=== PATIENT | female | born 1945 | race Caucasian/White ===

== ENCOUNTER 2022-10-06 11:33 | Inpatient (IN) | payer MEDICARE ==
[~2022-10-06] VITALS: Ht 152.4 cm; Wt 84.0 kg
[2022-10-06] VITALS (47 sets, daily range): BP systolic 141–208; BP diastolic 59–129
[~2022-10-06 11:33] MED LIST: ACIPHEX20 MG OR; AVALIDE1 TA1 OR; LIPITOR20 MG OR; ULTRAM ER100 MG OR
--- NOTE | 2022-10-06 11:35 | NUR ---
Patient brought urgently to ED 2 via w/c. is historian, reports that LTN was around 1000. He found his confused about how to operate the dryer and reported feeling dizzy. Stroke alert activated. See EMR and stroke packet documentation.
[2022-10-06 12:08] LABS: HEMATOCRIT 41.6 % (37.0-47.0); HEMOGLOBIN 13.5 g/dl (12.0-16.0); IMMATURE GRANULOCYTES 0.3 % (0.0-5.0); MEAN CELL VOLUME 88.9 fL CALC (80.0-100.0); MEAN CORPUSCULAR HGB 28.8 pG CALC (26.0-32.0); MEAN CORPUSCULAR HGB CONC 32.5 g/dL CAL (32.0-36.0); NEUT# 6.95 thou/uL (2.00-7.15); RED BLOOD COUNT 4.68 mill/uL (4.20-5.60); RED CELL DISTRI WIDTH 13.1 % (11.5-15.5)
[2022-10-06 12:32] LABS: ALBUMIN 4.3 g/dL (3.2-5.0); ALKALINE PHOSPHATASE 128 u/l (38-126); ANION GAP 14 (6-22 (CALC)); BILIRUBIN, TOTAL 0.5 mg/dL (0.0-1.4); BUN 18 mg/dL (8-23); BUN/CREATININE RATIO 16 (12-20 (CALC)); CARBON DIOXIDE 24 mmol/l (22-30); CHLORIDE 105 mmol/l (95-108); CREATININE 1.2 mg/dL (0.5-1.0); GFR FOR AFR.AMER. 53 ML/MIN (>=60 (CALC)); GFR OTHER RACES 43 ML/MIN (>=60 (CALC)); POTASSIUM 4.1 mmol/l (3.5-5.1); SGOT/AST 27 u/l (9-36); SODIUM 139 mmol/l (137-146)
[2022-10-06 12:34] LABS: PROTHROMBIN TIME 9.6 SECONDS (9.0-12.5)
--- NOTE | 2022-10-06 16:29 | NUR ---
EKG TO DR CHAUHAN
--- NOTE | 2022-10-06 17:53 | NUR ---
patient to ICU 6. Bedside report to KLEBER Magana. NIHSS completed at bedside and both RNs agree with assessment.
--- NOTE | 2022-10-06 19:00 | NUR ---
REPORT RECEICED FROM LATOYA SHAHID. PT IN BED EATING. TOLERATING WELL. IV TO RAC FOUND DISLODGED. CATH INTACT. NO BLEEDING NOTED. PT WITH EXPRESSIVE APHASIA. NO WEAKNESS NOTED. WILL CONTINUE PLAN OF CARE. CLOSE MONITORING OF BP. WILL REASSESS AND MEDICATE PER PRN ORDERS.
--- NOTE | 2022-10-06 20:10 | NUR ---
SPOKE WITH DR. MATHEW. PT WITH ONE IV SITE, FLUSHS WELL, BUT MINIMAL BLOOD RETURN. PT WITH STAT LAB ORDERS. HOLD BLOOD DRAWS FOR 24H POST TNK ADMINISTRATION. ELECTRIC CLOCK MECHANIC NOTIFIED.
--- NOTE | 2022-10-06 21:10 | NUR ---
URINE COLLECTED AND SENT TO LAB
[2022-10-06 21:24] LABS: URINE BILIRUBIN - DIPSTICK NEGATIVE (NEGATIVE); URINE BLOOD DIPSTICK TRACE-INTACT (NEGATIVE); URINE COLOR YELLOW; URINE GLUCOSE - DIPSTICK NEGATIVE (NEGATIVE); URINE KETONE NEGATIVE (NEGATIVE); URINE LEUK ESTERASE NEGATIVE (NEGATIVE); URINE PROTEIN - DIPSTICK NEGATIVE (NEG-TRACE); URINE UROBILINOGEN - DIPSTICK 0.2 E.U./dL (0.2)
[2022-10-06 21:25] LABS: URINE NITRITE - DIPSTICK NEGATIVE (Negative)
--- NOTE | 2022-10-06 21:30 | NUR ---
SPOKE TO DR. MARISCAL REGARDING STAT DIAGNOSTICS (MRI AND ECHO). PHYSICIAN REPORTS THAT HE IS AWARE THAT MRI WILL NOT BE DONE OVER NIGHT. MRI TO BE DONE OVER WEEKEND AND ECHO WILL LIKELY NOT BE DONE UNTIL AFTER WEEKEND. HIDE TANNER GENESIS MOHAN.
--- NOTE | 2022-10-06 21:50 | NUR ---
REPORT GIVEN TO KLBEER ISSA. PT RESTING IN BED. NO DISTRESS. VSS.
--- NOTE | 2022-10-06 22:00 | NUR ---
TAKING OVER PT CARE, REPORT RECEIVED FROM KLEBER THOMPSON.
[2022-10-07] VITALS (88 sets, daily range): BP systolic 100–187; BP diastolic 35–141
--- NOTE | 2022-10-07 | NUR ---
SHIFT REASSESSMENT - PT ALERT AND FOLLOWING COMMANDS. PT IS APHASIC, NIH COMPLETED. PT WAS ABLE TO SAY HER NAME ONCE, BUT WAS UNABLE TO SAY IT AGAIN AN HOUR LATER. PTS BLOOD PRESSURE WITHIN NORMAL LIMITES AT THIS TIME.
--- NOTE | 2022-10-07 02:00 | NUR ---
SHIFT REASSESSMENT - PT ALERT AND FOLLOWING COMMANDS. LOOKS TO BE GETTING MORE FRUSTRATED WITH EACH NIH ASSESSMENT. CONTINUED TO REASSURE HER THAT THERE ARE SMALL NOTICABLE IMPROVEMENTS. PT WAS ABLE TO SAY THAT THERE ARE CHILDREN IN THE PHOTO THIS TIME. NIH SCORE HAS NOT CHANGED, PT REMAINS AT 4 DUE TO APHASIA.
--- NOTE | 2022-10-07 04:00 | NUR ---
SHIFT REASSESSMENT - ALERT AND AWAKE, THIS TIME SHE SEEMS TO BE IN A BETTER MOOD ABOUT THE NIH ASSESSMENT. PT WAS ABLE TO SAY THAT SHE SEES CHILDREN, AND A WOMEN IN THE PHOTO. SHE WAS VERY EXCITED ABOUT IT. VITAL SIGNS ARE WITHIN NORMAL LIMITS. PT DENIES PAIN AT THIS TIME. NO SIGNS OF INAPPROPRIATE BLEEDING. CALL LIGHT WITHIN HER REACH. SAFETY PRECAUTIONS IN PLACE.
--- NOTE | 2022-10-07 06:15 | NUR ---
SHIFT REASSESSMENT - NO CHANGE IN PT STATUS AT THIS TIME. VITAL SIGNS ARE WITHIN NORMAL LIMITS. SAFETY PRECAUTIONS ARE IN PLACE.
--- NOTE | 2022-10-07 07:43 | NUR ---
pt awake/alert, able to follow commands, no noted weakness or deficits, has clear speech but aphasic, able to express some words/phrases
--- NOTE | 2022-10-07 09:10 | NUR ---
pt awake/alert, having difficulty with most words and her name, family at bedside
--- NOTE | 2022-10-07 11:20 | NUR ---
pt down to MRI, experiencing some mild anxiety during test, ativan given prior to
--- NOTE | 2022-10-07 11:56 | NUR ---
pt back to bed after MRI, transported by WC, ambulated with minimal 1 assist, cydney transfers well
--- NOTE | 2022-10-07 13:20 | NUR ---
pt with family in room, up to BSC, unsteady, some difficulty finding words but can speak in some full sentences, able to say words on NIHSS list but unable to state name
--- NOTE | 2022-10-07 15:07 | NUR ---
pt continues with family at bedside, she denies FINCH or dizziness
[2022-10-07 15:29] LABS: HEMATOCRIT 42.7 % (37.0-47.0); HEMOGLOBIN 13.6 g/dl (12.0-16.0); MEAN CELL VOLUME 90.5 fL CALC (80.0-100.0); MEAN CORPUSCULAR HGB 28.8 pG CALC (26.0-32.0); MEAN CORPUSCULAR HGB CONC 31.9 g/dL CAL (32.0-36.0); RED BLOOD COUNT 4.72 mill/uL (4.20-5.60); RED CELL DISTRI WIDTH 13.7 % (11.5-15.5)
[2022-10-07 15:53] LABS: CREATININE 1.2 mg/dL (0.5-1.0); POTASSIUM 3.9 mmol/l (3.5-5.1)
[2022-10-07 15:54] LABS: ALBUMIN 4.1 g/dL (3.2-5.0); BILIRUBIN, TOTAL 0.6 mg/dL (0.0-1.4); CHOLESTEROL HDL RATIO 2.8 (<4.4 (CALC)); MAGNESIUM 2.2 mg/dL (1.6-2.3); TOTAL PROTEIN 6.9 g/dL (6.3-8.2)
--- NOTE | 2022-10-07 17:30 | NUR ---
pt again up to commode, more steady this time, PT has been in to eval
--- NOTE | 2022-10-07 20:00 | NUR ---
PT SLEEPING AT THE TIME OF MY ARRIVAL. COMPLETED ASSESSMENT AND NIH. PT DOES RESPOND APPROPRIATELY WHEN ASKED SINGLE WORK ANSWERS. SHE ALSO RESPONDS WHEN SHE DOES NOT ASSUME WE ARE COMPLETING AN NIH ASSESSMENT. PT HAS BEEN OUT OF BED USING THE COMMODE. PT DOES NOT LOOK TO BE IN ANY ANY DISTRESS. PT DENIES PAIN AT THIS TIME. CALL LIGHT AND PERSONAL BELONGINGS WITHIN REACH.
--- NOTE | 2022-10-07 22:00 | NUR ---
SHIFT REASSESSMENT - NO CHANGE IN PT STATUS AT THIS TIME. VITAL SIGNS ARE WITHIN NORMAL LIMITS. CALL LIGHT AND PERSONAL BELONGINGS WITHIN REACH.
[2022-10-08] VITALS (43 sets, daily range): BP systolic 105–163; BP diastolic 34–140
--- NOTE | 2022-10-08 | NUR ---
SHIFT REASSESSMENT - PT COMPLETED NIH AND THERE HAS BEEN NO CHANGE AT THIS TIME.
--- NOTE | 2022-10-08 02:00 | NUR ---
SHIFT REASSESSMENT - NO CHANGE IN PT STATUS. CALL LIGHT WITHIN REACH.
--- NOTE | 2022-10-08 04:00 | NUR ---
SHIFT REASSESSMENT - PT ALERT AND ORIENTED. NIH REMAINS UNCHANGED. CALL LIGHT WITHIN REACH.
--- NOTE | 2022-10-08 06:00 | NUR ---
SHIFT REASSESSMENT - PT RESTING COMFORTABLY. NO CHANGE IN PT STATUS AT THIS TIME.
--- NOTE | 2022-10-08 08:00 | NUR ---
Pt resting in bed comfortably - call light and personal belongings at bedside. No concerns at this time.
--- NOTE | 2022-10-08 09:00 | NUR ---
Med pass completed with no issues. Educated patient on importance of anti coagulations. Pt verbalized understanding. Assited pt to BSC where she urinated 150cc which is charted. Breakfast tray delivered. Glucose checked and WNL. Pt has no current needs at this time. CXR ordered and completed d/t wheezing.
--- NOTE | 2022-10-08 10:26 | NUR ---
Pt spouse at bedside - pt denies any pain or discomfort - VSS - no needs or concerns at this time.
--- NOTE | 2022-10-08 12:28 | NUR ---
Patient resting in bed, spouse still at bedside - tolerated lunch with no issues - Blood sugar was 96 - pt denies any pain or discomfort. Call light and personal belongings in reach.
--- NOTE | 2022-10-08 14:18 | NUR ---
PT CT negative and xray of right hand negative. Ct and XRAY ordered to follow up on pt fall 10/07/22. Pt notified and verbalized understanding.
--- NOTE | 2022-10-08 16:00 | NUR ---
Pt visiting with son and daughter in law - Denies any pain or discomfot - VSS - declined toileting - call light and personal belongings in reach.
--- NOTE | 2022-10-08 18:03 | NUR ---
Pt completed Tele Neuro consult without any issues - was able to eat dinner with no issues - pt stil has trouble answering LOC questions - Gait is unsteady and pt is instructed to call before getting up - bed alarm is on - call light and personal belongings in reach
--- NOTE | 2022-10-08 20:00 | NUR ---
PATIENT LAYING IN BED AT THIS TIME. NEURO CHECKS REMAIN UNCHAGED FROM PREVIOUS CHECK. PATIENT IS ALERT AND ORIENTED X 2 AND CAN ANSWER QUESTIONS BUT IS APHASIC AND DYSARTHRIA IS NOTED. PATIENT NIH IS A 4 AT THIS TIME. PATIENT MOVES ALL EXTREMITIES WELL AND WITHOUT DRIFTS. LUNG WHYTE HAVE NOTED WHEEZINGS IN LOWER WHYTE. BOWEL SOUNDS ARE PRESENT IN ALL FOUR QUADRANTS, SPEECH IS CLEAR. PATIENT DENIES ANY PAIN AND PARTITION SETTER IS SHOWING SINUS RHYTHM AND HR OF 100 AT THIS TIME CURRENT BP IS 140/58. SIDERAILS ARE UP CALL LIGHT IS WITHIN REACH WILL CONTINUE TO MONITOR.
--- NOTE | 2022-10-08 22:10 | NUR ---
PATIENT LAYING IN BED AT THIS TIME WITH EYES CLOSED. PATIENTS RESPIRATIONS ARE EASY AND UNLABORED AT THIS TIME. PROFILE MILL OPERATOR TAPE CONTROL READING SINUS RHYTHM AND HR OF 91 AND SPO2 IS CURRENTLY 94% ON ROOM AIR. SIDERAILS ARE UP X 2 CALL LIGHT WITHIN REACH WILL CONTINUE TO MONITOR.
[2022-10-09] VITALS (15 sets, daily range): BP systolic 114–171; BP diastolic 67–143
--- NOTE | 2022-10-09 | NUR ---
PATIENT RESTING IN BED AT THIS TIME DENEIS ALL NEEDS AT THIS TIME. NEURO CHECK REMAINS UNCHAGED PREVIOUISLY DONE. NIH REMAINS A 4 AT THIS TIME. SIDERAILS ARE UP X 2 CALL LIGHT IS WITHIN REACH. SALES RECRUITER READING SINUS RHYTHM AND HR IS 89 AT THIS TIME. PATIENT IS RESING AND ROOM AIR IS 96% SIDERAILS ARE UP CALL LIGHT WITHIN REACH.
--- NOTE | 2022-10-09 02:12 | NUR ---
PATIENT REMAINS IN BED WITH EYES CLOSED AND RESPIRATIONS EASY AND UNLABORED AT THIS TIME. TOW MOTOR OPERATOR SHOWING SR AND HR IS 91. SPO2 ON ROOMAIR IS CURRENTLY 94% SIDERAILS ARE UP CALL LIGHT WITHIN REACH.
--- NOTE | 2022-10-09 04:00 | NUR ---
PATIENT AWAKE IN BED NEURO CHECKS PREFORMED AT THIS TIME AND REMAIN UNCHANGED FROM PREVIOUS CHECK. NIH REMAINS A 4 AT THIS TIME. PATIENT IS ALERT AND ORIENTED BUT DOES HAVE APHASIA. PATIENT MOVES ALL EXTREMITES WELL AND NO DRIFT NOTED. SPEECH IS CLEAR AT THIS TIME. PATIENT WAS ASSISTED TO BEDSIDE COMMODE AND PATIENT VOIDED 550ML OF MARIAM COLOR URINE. LAITH PAD CHANGED AT THIS TIME AND PATIENT ASSISTED BACK TO BED. SIDERAILS ARE UP X 2 AND CALL LIGHT WITHIN REACH.
--- NOTE | 2022-10-09 06:00 | NUR ---
PATIENT RESTING IN BED AT THIS TIME DENIES ANY NEEDS CURRENTLY DATA CENTER ARCHITECT READING SINUS RHYTHM AT 94 SIDERAILS ARE UP CALL LIGHT WITHIN REACH.
--- NOTE | 2022-10-09 08:00 | NUR ---
Upon arrival pt resting in bed comfortably - VSS - NSR on monitor - Call light and personal belongings in reach
--- NOTE | 2022-10-09 10:00 | NUR ---
Pt tolerated am med pass with no difficulties - Assisted to BSC, gait is improved today - VSS - Pt denies any pain or discomfort - NIH score is a 4 - call light and personal belongins in reach
[2022-10-09] MEDS ORDERED: PLAVIX75 MG PO (10:57)
[2022-10-09] MEDS ORDERED: ADLT ASA LOW81 MG PO (10:58)
[2022-10-09] MEDS ORDERED: LIPITOR40 M1 PO (11:03)
--- NOTE | 2022-10-09 12:30 | NUR ---
Reviewed DC instructions with patient, spouse and son. All three verbalized understanding - PIV removed and coban applied, no bleeding noted - Pt indicated understanding on home meds at [facility] - - Pt was wheeled downstairs to husbands vehicle with all personal belongings in stable condition.
== END 2022-10-09 12:30 | disposition home health service (06) | DRG 63 ==
LOC: ED 11:33 → ED-I 11:48 → ED 11:48 → ED-I 15:30 → ED 15:52 → ICU 15:53
PROVIDERS: Family Medicine; ADMIT Internal Medicine; ATTEND Internal Medicine
DX: I63.512 Cerebral infarction due to unspecified occlusion or stenosis of left middle cerebral artery (principal); I63.522 Cerebral infarction due to unspecified occlusion or stenosis of left anterior cerebral artery; R47.01 Aphasia; R41.0 Disorientation, unspecified; R29.703 NIHSS score 3; I16.0 Hypertensive urgency; I10 Essential (primary) hypertension; E78.5 Hyperlipidemia, unspecified
CPT/HCPCS: J2060; J3101; Q9967